=== PATIENT | male | born 1985 | race Caucasian/White ===

== ENCOUNTER 2024-03-13 12:31 | Emergency (ER) | payer OTHER ==
[~2024-03-13] VITALS: Ht 182.9 cm; Wt 88.5 kg
[2024-03-13] MEDS ORDERED: PSEU-249 PO (13:44)
[2024-03-13] MEDS ORDERED: FLUT16SP16 BNOSTRILS (13:44)
[2024-03-13] MEDS ORDERED: OXYM15MI4 NS (13:44)
[2024-03-13 15:27] VITALS: BP 138/69; TEMP 98.2; O2SAT 97
== END 2024-03-13 15:28 | disposition home or self-care (01) ==
LOC: ER 12:31
DX: J32.9 Chronic sinusitis, unspecified (principal); Z79.899 Other long term (current) drug therapy
CPT/HCPCS: A4606; A4663